=== PATIENT | male | born 1985 | race Caucasian/White ===

== ENCOUNTER 2019-10-13 07:19 | Emergency (ER) | payer OTHER ==
[~2019-10-13] VITALS: Ht 165.1 cm; Wt 96.2 kg
[~2019-10-13 07:19] MED LIST: NORCO 5-325 TA1 EACH PO; PAXIL10 MG PO
[2019-10-13] MEDS ORDERED: KLONOPIN0.5 MG PO (07:50)
[2019-10-13] MEDS ORDERED: PAXIL10 MG PO (07:50)
[2019-10-13 08:33] VITALS: BP 131/83
== END 2019-10-13 08:34 | disposition home or self-care (01) ==
LOC: ER 07:19
DX: F41.0 Panic disorder [episodic paroxysmal anxiety] (principal); Z88.1 Allergy status to other antibiotic agents; Z88.0 Allergy status to penicillin; Z79.899 Other long term (current) drug therapy

== ENCOUNTER → 2020-02-04 | Outpatient (CLI) | payer BC ==
[~2020-02-04] MED LIST changes: +KLONOPIN0.5 MG PO
== END ==
LOC: SJCVCIMAG 08:34
DX: R00.0 Tachycardia, unspecified (principal); R00.2 Palpitations